=== PATIENT | female | born 1985 | race Caucasian/White ===

== ENCOUNTER → 2017-05-10 | Day surgery (SDC) | payer OTHER ==
--- NOTE | 2017-05-10 12:22 | Operative Report ---
Operative/Inv Procedure Report Surgery Date: 05/10/17 Name of Procedure: Index finger with additional incisions for exposure Repair extensor tendon zone 1 Debridement full-thickness skin 1.2 cm Pre-Operative Diagnosis: Penetrating injury left small finger with extensor loss Post-Operative Diagnosis: Same Estimated Blood Loss: scant Surgeon/Post Hole Digger: KELL WISE MD Anesthesia: laryngeal mask airway Operative/Procedure Note Note: The patient was counseled extensively regards to the procedure the alternatives risks and the expected outcomes as relates to request for surgical intervention to treat a laceration of the left small finger extensor tendon which is causing a mallet deformity and swan-neck. We discussed exploring this penetrating injury extending the skin incisions in both directions to provide exposure cleaning what needed to be cleaned and fixing what needed to be repaired. No guarantees were given in regards to outcome we talked about the risks of infection pain bleeding numbness definitely visible scarring possibly unsightly or symptomatic and failure of the repair. Must be strict postoperative control of flexion at the DIP joint of the left small finger. The patient understood the risks that the repair could be completely ruptured if she allows that joint to bend. Renal placed supine on the table after signing a consent form after an additional discussion. Venodyne boots are placed and then laryngeal mask anesthesia was established intravenous antibiotics were given. The left extremity was prepped and draped in usual sterile fashion. Full-thickness excision around the previous scar was carried out on both sides right healthy tissue for closure. The incision was then made in a Abdiaziz like fashion medial mid digit in a proximal extent and distal 45 angle Abdiaziz incision over the DIP dorsally. The skin flaps were retracted back. The edges of the extensor tendon were identified. Multiple 4 nonabsorbable sutures were placed and 4 repair with good coaptation. Some other debris secondary to the injury was found within the wound bed during that excision was removed. Copious irrigation was carried out and was closed in a single layer. Attention splint was placed.
== END ==
LOC: STS 01:09
DX: M20.012 Mallet finger of left finger(s) (principal); S66.327A Laceration of extensor muscle, fascia and tendon of left little finger at wrist and hand level, initial encounter; X58.XXXA Exposure to other specified factors, initial encounter; E66.9 Obesity, unspecified; F17.200 Nicotine dependence, unspecified, uncomplicated; S61.207A Unspecified open wound of left little finger without damage to nail, initial encounter
CPT/HCPCS: 81025; J0690; J2250